=== PATIENT | male | born 1975 | race Caucasian/White ===

== ENCOUNTER 2018-02-27 12:34 | Emergency (ER) | payer SELFPAY ==
[~2018-02-27] VITALS: Ht 180.3 cm; Wt 72.6 kg
[2018-02-27] MEDS ORDERED: NAPROSYN500 MG PO (14:54)
[2018-02-27] MEDS ORDERED: ROBAXIN500 M1 PO (14:54)
== END 2018-02-27 14:58 | disposition home or self-care (01) ==
LOC: ED 12:34
DX: S16.1XXA Strain of muscle, fascia and tendon at neck level, initial encounter (principal); S00.12XA Contusion of left eyelid and periocular area, initial encounter; Z23 Encounter for immunization; Y08.09XA Assault by strike by other specified type of sport equipment, initial encounter; Y93.01 Activity, walking, marching and hiking; Y92.89 Other specified places as the place of occurrence of the external cause; Y99.8 Other external cause status

== ENCOUNTER 2018-03-10 17:20 | Emergency (ER) | payer SELFPAY ==
[~2018-03-10] VITALS: Ht 180.3 cm; Wt 72.6 kg
[~2018-03-10 17:20] MED LIST: NAPROSYN500 MG PO; ROBAXIN500 M1 PO
== END 2018-03-10 18:28 | disposition home or self-care (01) ==
LOC: ED 17:20
DX: S61.012A Laceration without foreign body of left thumb without damage to nail, initial encounter (principal); Z79.1 Long term (current) use of non-steroidal anti-inflammatories (NSAID); Z79.899 Other long term (current) drug therapy; W26.8XXA Contact with other sharp object(s), not elsewhere classified, initial encounter; Y93.89 Activity, other specified; Y92.89 Other specified places as the place of occurrence of the external cause; Y99.8 Other external cause status